=== PATIENT | male | born 1985 | race Caucasian/White ===

== ENCOUNTER 2017-03-07 18:26 | Emergency (ER) | payer OTHER ==
[2017-03-07 21:22] VITALS: BP 128/77
== END 2017-03-07 21:22 | disposition home or self-care (01) ==
LOC: ED 18:26
DX: I86.1 Scrotal varices (principal); B37.89 Other sites of candidiasis; Z98.890 Other specified postprocedural states
CPT/HCPCS: 82962; Q0092